=== PATIENT | male | born 1965 | race Caucasian/White ===

== ENCOUNTER 2019-01-27 08:52 | Emergency (ER) | payer OTHER ==
--- NOTE | 2019-01-27 09:20 | EDM.PDOC ---
ED HPI GENERAL MEDICAL PROBLEM - General Chief Complaint: Fever Stated Complaint: FLU SX Time Seen by Provider: 01/27/19 09:13 Source of Information: Reports: Patient History Limitations: Reports: No Limitations - History of Present Illness INITIAL COMMENTS - FREE TEXT/NARRATIVE: 53-year-old male presents to the ED with acute onset of upper respiratory tract infection symptoms. Patient states he became ill suddenly January 25. Initially started with relatively nonproductive cough. Yesterday he was aching all over with an associated headache. Of note the patient did have a flu shot last fall. He reports that his was ill with influenza A about 2 weeks ago. He does still have an appetite and did eat some pop tart this morning for breakfast. Eyes any nausea vomiting or diarrhea. Took 600 mg of Advil last night before bed nothing so far today. Onset: Sudden Onset Date: 01/25/19 Onset Time: 12:00 Duration: Day(s): Location: Reports: Chest, Generalized (Normalized myalgia.), Other (Harsh paroxysmal minimally productive cough headache) Quality: Reports: Ache Severity: Moderate Improves with: Reports: None Worsens with: Reports: None Context: Denies: Activity, Exercise, Lifting, Sick Contact, Trauma, Other Associated Symptoms: Reports: Chest Pain (Minimal sputum production), Cough, cough w sputum, Diaphoresis (sweats ), Fever/Chills ( until chest pain with coughing.), Headaches ( diaphoresis last night.), Malaise. Denies: Loss of Appetite, Shortness of Breath Treatments BEARING GRINDER: Reports: NSAIDS (Motrin.) Generalized Pain Score (Numeric/FACES): 3 - Related Data Allergies Allergy/AdvReac Type Severity Reaction Status Date / Time No Known Allergies Allergy Verified 01/27/19 09:05 Home Meds: Home Meds Citalopram [Citalopram HBr] 20 mg PO DAILY 11/03/18 [History] Fish Oil/[place]-3 Fatty Acids [Fish Oil 1,000 MG] 1 cap PO DAILY 11/03/18 [ History] Losartan [Cozaar] 100 mg PO DAILY 11/03/18 [History] Simvastatin 20 mg PO DAILY 11/03/18 [History] Ubidecarenone [Coq-10] 400 mg PO DAILY 11/03/18 [History] Allopurinol [Zyloprim] 1 tab PO DAILY 11/04/18 [History] Metoprolol Tartrate [Lopressor] 25 mg PO Q12H #60 tablet 11/05/18 [Rx] Aspirin [Adult Aspirin] 81 mg PO DAILY #30 tablet. 11/06/18 [Rx] Hydrocodone/Chlorphen P-Stirex [Tussionex Pennkinetic Susp] 5 ml PO Q12H PRN # 60 ml 01/27/19 [Rx] Oseltamivir [Tamiflu] 75 mg PO BID #10 cap 01/27/19 [Rx] Past Medical History Cardiovascular History: Reports: High Cholesterol, Hypertension Gastrointestinal History: Reports: GERD Musculoskeletal History: Reports: Gout - Infectious Disease History Infectious Disease History: Reports: Chicken Pox, Mumps - Past Surgical History GI Surgical History: Reports: Hernia Repair/Other Social & Family History - Family History Family Medical History: Noncontributory - Tobacco Use Smoking Status *Q: Never Smoker - Caffeine Use Caffeine Use: Reports: Coffee - Recreational Drug Use Recreational Drug Use: No - Living Situation & Occupation Living situation: Reports: Occupation: Employed ED ROS GENERAL - Review of Systems Review Of Systems: See Below Constitutional: Reports: Fever, Chills, Malaise, Weakness, Fatigue, Decreased Appetite HEENT: Reports: No Symptoms Respiratory: Reports: Cough Cardiovascular: Reports: No Symptoms Endocrine: Reports: Fatigue GI/Abdominal: Reports: No Symptoms : Reports: No Symptoms Musculoskeletal: Reports: Muscle Pain Skin: Reports: No Symptoms (Generalized myalgia) Neurological: Reports: Headache (Mild) Psychiatric: Reports: No Symptoms Hematologic/Lymphatic: Reports: No Symptoms ED EXAM, GENERAL - Physical Exam Exam: See Below Exam Limited By: No Limitations General Appearance: Alert, WD/WN, No Apparent Distress, Other (Slightly warm to palpation. Nurses record temperatures 36.2. He appears to be clinically little warmer than that.) Eye Exam: Bilateral Eye: Normal Inspection Ears: Normal TMs Throat/Mouth: Normal Inspection, Normal Lips, Normal Oropharynx Head: Atraumatic, Normocephalic Neck: Normal Inspection, Supple, Non-Tender, Full Range of Motion Respiratory/Chest: No Respiratory Distress, Lungs Clear, Normal Breath Sounds, No Accessory Muscle Use Cardiovascular: Normal Peripheral Pulses, Regular Rate, Rhythm, No Edema, No Gallop, No Murmur, No Rub Peripheral Pulses: 3+: Posterior Tibial (L), Posterior Tibial (R), Dorsalis Pedis (L), Dorsalis Pedis (R) GI/Abdominal: Normal Bowel Sounds, Soft, Non-Tender, No Organomegaly, No Abnormal Bruit, No Mass, Pelvis Stable. No: Guarding, Rigid, Rebound Back Exam: Normal Inspection, Full Range of Motion. No: CVA Tenderness (L), CVA Tenderness (R) Extremities: Normal Inspection, Normal Range of Motion, Non-Tender, No Pedal Edema Neurological: Alert, Oriented, CN II-XII Intact, Normal Cognition Psychiatric: Normal Affect, Normal Mood Skin Exam: Warm, Dry, Intact, Normal Color, No Rash Course - Vital Signs Last Recorded V/S: Last Vital Signs Temp 36.2 C 01/27/19 09:03 Pulse 85 01/27/19 09:03 Resp 16 01/27/19 09:03 BP 137/71 01/27/19 09:03 Pulse Ox 92 L 01/27/19 09:03 - Radiology Interpretation Free Text/Narrative:: 53-year-old male presents to the ED with reported acute onset of illness on January 25 which is 2 days ago. States he developed sudden onset of paroxysmal minimally productive cough and then developed fever chills and generalized myalgia with mild headache. His appetite so far is been maintained. He tried to go to work yesterday but had to come home from work due to feeling so ill. Of note his was ill with influenza A about 2 weeks ago. Emanation reveals no signs of bacterial infection. Clinically he most likely has influenza as well. Influenza screen to be done - Re-Assessments/Exams Free Text/Narrative Re-Assessment/Exam: 01/27/19 09:54 screen for influenza came back for the A type virus. Patient will be placed on Tamiflu 75 mg twice a day for the next 5 days as came within 48 hours of onset of illness. Several be Tussionex 5 mils every 12 hours as necessary for cough relief. Will be out of work the rest of this week due to contagiousness to others in the workplace. Tentatively May return to work on February 02 Departure - Departure Time of Disposition: 10:02 Disposition: Home, Self-Care 01 Condition: Fair Clinical Impression: Influenza A, Influenza - Discharge Information *PRESCRIPTION DRUG MONITORING PROGRAM REVIEWED*: Not Applicable *COPY OF PRESCRIPTION DRUG MONITORING REPORT IN PATIENT DANIELA: Not Applicable Prescriptions: Hydrocodone/Chlorphen P-Stirex [Tussionex Pennkinetic Susp] 5 ml PO Q12H PRN # 60 ml PRN Reason: Cough relief Oseltamivir [Tamiflu] 75 mg PO BID #10 cap Referrals: Justo Calderon PA [Primary Care Provider] - Forms: ED Department Discharge, ED Return to Work/School Form Additional Instructions: Evaluation in the emergency department today in regards to development of paroxysmal cough associated with diffuse body aches and mild headache and mild decrease in appetite. Symptoms are compatible with influenza which is rampant in our community at this time. You tested positive for the influenza A type virus. Treatment is antiviral medication Tamiflu. Take one tablet twice daily for the next 5 days. Usually start to feel much better after taking the third fourth tablet. In the meantime he will need to take Motrin 6 mg every 6 hours for reduction of fever and body ache and headache. Plenty of fluids and diet as tolerated. Off work until February 02 as you are contagious to others for about a week from the time he develop symptoms. Cough syrup is Tussionex for [employer]. Take 5 mils twice daily for cough relief as needed. It should be taken a good hour before going to bed as it takes about an hour to work. Off from influenza A will usually last a good couple of weeks.
== END 2019-01-27 10:11 | disposition home or self-care (01) ==
LOC: JD.ED 08:52
DX: J10.1 Influenza due to other identified influenza virus with other respiratory manifestations (principal); I10 Essential (primary) hypertension; M10.9 Gout, unspecified; Z79.82 Long term (current) use of aspirin; Z79.899 Other long term (current) drug therapy
CPT/HCPCS: 87804; 99283

== ENCOUNTER 2022-09-08 01:31 | Inpatient (IN) | payer BC ==
[2022-09-08] MEDS ORDERED: Adenosine 6 MG/2 ML SDV IVPUSH ONE (02:01)
[2022-09-08] MEDS ORDERED: Diltiazem 25 MG/5 ML SDV IVPUSH ONE (02:20)
[2022-09-08 02:26] LABS: ESTIMATED GFR 87 mL/min (>60)
[2022-09-08] MEDS: Diltiazem 125 MG in Sodium Chloride 0.9% 100 ML IV SCH ×2 (02:31→15:08)
[2022-09-08 03:22] LABS: CORONAVIRUS COVID-19 NAA NEGATIVE (NEGATIVE)
[2022-09-08] MEDS ORDERED: Acetaminophen 325 MG Tab PO PRN (12:43)
[2022-09-08 13:28] LABS: HEMOGLOBIN A1C 5.7 %
[2022-09-08] MEDS: Metoprolol Tartrate 50 MG Tab PO SCH ×2 (14:13→20:17)
[2022-09-09] MEDS: Diltiazem 125 MG in Sodium Chloride 0.9% 100 ML IV SCH ×2 (00:01→12:21)
[2022-09-09] MEDS: Losartan 100 MG Tab PO SCH (08:07)
[2022-09-09] MEDS: Aspirin 325 MG Tab.EC PO SCH (08:07)
[2022-09-09] MEDS: Allopurinol 300 MG Tab PO SCH (08:08)
[2022-09-09] MEDS: Metoprolol Tartrate 50 MG Tab PO SCH ×2 (08:08→20:09)
[2022-09-09] MEDS: atorvaSTATin 20 MG Tab PO SCH (08:10)
[2022-09-09] MEDS: Citalopram 20 MG Tab PO SCH (08:10)
[2022-09-09] MEDS: Enoxaparin 40 MG/0.4 ML Syringe SUBCUT SCH (08:11)
[2022-09-09] MEDS ORDERED: Metoprolol Succinate 50 MG Tab.ER PO SCH (09:00)
[2022-09-09] MEDS: Diltiazem IR 30 MG Tab PO SCH (19:30)
[2022-09-10] MEDS: Diltiazem IR 30 MG Tab PO SCH ×3 (00:30→11:36)
[2022-09-10] MEDS: Citalopram 20 MG Tab PO SCH (07:59)
[2022-09-10] MEDS: Aspirin 325 MG Tab.EC PO SCH (07:59)
[2022-09-10] MEDS: Allopurinol 300 MG Tab PO SCH (07:59)
[2022-09-10] MEDS: atorvaSTATin 20 MG Tab PO SCH (07:59)
[2022-09-10] MEDS: Losartan 100 MG Tab PO SCH (07:59)
[2022-09-10] MEDS: Metoprolol Tartrate 50 MG Tab PO SCH (08:00)
[2022-09-10] MEDS: Enoxaparin 40 MG/0.4 ML Syringe SUBCUT SCH (09:30)
[2022-09-10] MEDS ORDERED: Apixaban 5 MG Tab PO SCH ×2 (10:00→21:00)
== END 2022-09-10 12:35 | disposition home or self-care (01) | DRG 201 ==
LOC: JD.ED 01:31 → JD.ICU 06:27
PROVIDERS: ADMIT Internal Medicine; ATTEND Internal Medicine
DX: I48.92 Unspecified atrial flutter (principal); G47.33 Obstructive sleep apnea (adult) (pediatric); E66.9 Obesity, unspecified; E78.5 Hyperlipidemia, unspecified; K21.9 Gastro-esophageal reflux disease without esophagitis; M10.9 Gout, unspecified; M19.90 Unspecified osteoarthritis, unspecified site; F41.9 Anxiety disorder, unspecified; C43.59 Malignant melanoma of other part of trunk; E78.00 Pure hypercholesterolemia, unspecified; Z20.822 Contact with and (suspected) exposure to COVID-19; I11.0 Hypertensive heart disease with heart failure; I50.9 Heart failure, unspecified; Z68.35 Body mass index [BMI] 35.0-35.9, adult; Z86.79 Personal history of other diseases of the circulatory system; Z79.01 Long term (current) use of anticoagulants; Z79.899 Other long term (current) drug therapy; Z98.890 Other specified postprocedural states; F17.290 Nicotine dependence, other tobacco product, uncomplicated
CPT/HCPCS: 0240U; 36415; 36600; 71045; 71045-26; 80053; 82803; 83036; 83735; 83880; 84443; 84484; 85025; 85379; 93005; 93306; A9270-GY; J1650; J3490

== ENCOUNTER 2025-03-12 16:53 | Emergency (ER) | payer BC ==
[2025-03-12] MEDS: Silver Sulfadiazine 1% Crm 400 GM Jar TOP ONE (18:16)
[2025-03-12] MEDS: Acetaminophen/oxyCODONE 325-5 MG Tab PO ONE (18:16)
[2025-03-12] MEDS: Ondansetron 4 MG Tab.DIS PO ONE (18:16)
== END 2025-03-12 18:40 | disposition home or self-care (01) ==
LOC: JD.ED 16:53
DX: T25.232A Burn of second degree of left toe(s) (nail), initial encounter (principal); T31.0 Burns involving less than 10% of body surface; I10 Essential (primary) hypertension; E66.9 Obesity, unspecified; Z79.899 Other long term (current) drug therapy
CPT/HCPCS: 16020; 99283; A9270; 99284